=== PATIENT | male | born 1950 | race Caucasian/White ===

== ENCOUNTER 2016-09-24 07:39 | Day surgery (SDC) | payer MEDICARE, OTHER ==
[~2016-09-24 07:39] MED LIST: RINGERS SOLUTION,LACTATED 1,000 ML IV PRN; ceFAZolin SODIUM 1 GM VIAL IV PRN
--- OUTSIDE RECORDS SUMMARY | 2016-09-24 07:44 | XMS REPORT | Continuity of Care Document ---
:1950 Author Organization [facility] ([facility]) Address [place] [address] Phone [phone] Care Team Providers Name Role Phone Alejo Jennings Primary Care Provider [phone] Source Comments This disclosure is being made pursuant to the Care Everywhere program, applicable federal and state laws, and may not contain all informaitonavailable regarding this patient.[facility] ([facility]) Active Allergies and Adverse Reactions Allergen Noted Date Severity Reactions Comments Ezetimibe-Simvastatin 01/21/2012 OTHER Reports severe muscle aches. Gemfibrozil 01/21/2012 Stomach Pain Current Medications Prescription Sig. Disp. Refills Start Date End Date Status Fenofibrate 160 mg Take 160 mg by mouth Active Tab daily. simvastatin 10 mg Take 40 mg by mouth Active tablet every evening. omeprazole 20 mg Take 1 Cap by mouth 90 Cap 3 08/25/2013 Active extended release daily. Indications: capsule GASTROESOPHAGEAL REFLUX cholecalciferol Take 2 Caps by mouth 24 Cap 3 01/26/2014 Active (VITAMIN D3) 25,000 every week. unit capsule Indications: VITAMIN D DEFICIENCY testosterone (TESTIM) apply 50 mg topically 30 Tube 3 06/25/2014 Active 1 % (50 mg/5 gram) daily. Indications: topical gel MALE HYPOGONADISM Active Problems Problem Noted Date Hyperlipidemia 06/25/2014 Obesity 06/25/2014 Acid reflux 06/25/2014 Post-polio syndrome 06/25/2014 Gynecomastia 11/24/2012 Secondary male hypogonadism 11/24/2012 Elevated prostate specific antigen (PSA) 01/22/2012 Most Recent Encounters Date Type Specialty Providers Description 09/03/2016 Lab Requisition Pathology [facility] Immunizations Name Dates Previously Given Next Due Influenza, unspecified 04/16/2012,05/05/2011 Social History Tobacco Use Types Packs/Day Years Used Date Former Smoker Quit: 07/09/1991 Smokeless Tobacco: Former User Chew Quit: 03/17/1996 Tobacco Cessation:Counseling Given: Yes Comments: Alcohol Use Drinks/Week oz/Week Comments Yes 1 Glasses of wine 1.0 1 Cans of beer Last Filed Vital Signs Vital Sign Reading Time Taken Blood Pressure 138/75 06/25/2014 8:23 AM CAMPAIGN CONSULTANT Pulse 69 06/25/2014 8:23 AM CAMPAIGN CONSULTANT Temperature 35.8 C (96.4 F) 06/19/2014 8:34 AM CAMPAIGN CONSULTANT Respiratory Rate 14 11/29/2013 12:58 PM CDT Height 1.829 m (6' 0.01") 06/25/2014 8:23 AM CAMPAIGN CONSULTANT Weight 113.309 kg (249 lb 12.8 oz) 06/25/2014 8:23 AM CAMPAIGN CONSULTANT Body Mass Index 33.87 06/25/2014 8:23 AM CAMPAIGN CONSULTANT Oxygen Saturation 97% 11/29/2013 12:58 PM CDT Plan of Care Health Maintenance Due Date Last Done Comments HCV Screening 1950 Hepatitis B Vaccine (1 of 3 - Primary 1950 Series) Tdap Vaccine 02/19/1959 Lipid Disorder Screening 02/19/1966 Td Vaccine 02/19/1966 Colonoscopy 02/19/1998 Zoster Vaccine 2008 Pneumococcal Vaccine (1 of 2 - PCV13) 02/19/2013 Prostate Cancer Screening 06/19/2015 06/19/2014 Influenza Vaccine: Seasonal (#1) 02/03/2016 04/16/2012, 05/05/2011 Results from Last 3 Months SURGICAL PATHOLOGY EXAM (08/31/2016 9:00 AM) Component Value Range Case Report Surgical Pathology Case: [id number] Authorizing Provider:[facility] Collected: 08/31/2016 09:00 AM Pathologist: Sarah Bennett MDReceived: 09/03/2016 12:30 PM Specimens: A) - Outside material, 12 slides, 4 blocks labeled [id number] B) - Diagnosis Prostate, right lobe, core needle biopsies ([id number]; 08/31/16): Benign prostatic tissue with focal acute inflammation. Prostate, left lobe, core needle biopsies ([id number]): Atypical small acinar proliferation. I have personally reviewed this case and edited the report as necessary. Clinical Information 66 year old man with elevated PSA. Microscopic Description Reviewed are twelve H and E stained slides, all labeled [id number], with the corresponding preliminary pathology report. Microscopic examination performed and supports the diagnosis. Performed by:Malaika Esquivel MD, Fellow/rls Specimen Tissue
[2016-09-24] MEDS ORDERED: RINGERS SOLUTION,LACTATED 1,000 ML IV ONE ×2 (08:15→09:23)
[2016-09-24] MEDS ORDERED: ROPIVACAINE HCL IJ ONE (09:00)
[2016-09-24] MEDS ORDERED: ROPIVACAINE HCL/PF 40 MG in NORMAL SALINE 16 ML IJ PRN (09:08)
[2016-09-24] MEDS ORDERED: BUPIVACAINE HCL/EPINEPHRINE 50 ML VIAL IJ ONE ×2 (09:10)
--- NOTE | 2016-09-24 09:51 | OR ---
Operative Report - Dictated Report Narrative: Date: 09/24/2016 Physician: Salo Perry M.D. Orthopedic Assistant: Quentin Combs PA-C Preoperative diagnosis: Left Knee medial meniscus tear Postoperative diagnosis: Left Knee medial meniscus tear Procedure: Left knee arthroscopy with partial medial meniscectomy, chondroplasty of the medial femoral condyle Anesthesia: MAC Plus local Complications: None Estimated blood loss: Minimal Tourniquet time: None Specimens: None Retained implants: None Drains: None Indications: Brian Is a 66 year-old male who has been followed in my clinic with complaints of knee pain consistent with suspected medial meniscal pathology. Physical exam and diagnostic imaging were consistent with these complaints and concern for medial meniscal pathology. Conservative measures have failed including, but not limited to, passage of time, activity modification, medications, and injections. The risks, benefits, and alternatives were discussed in clinic. The risks being , bleeding, infection, blood clots, nerve, tendon, ligament , blood vessel injury, persistent pain, arthrosis, need for additional procedures, and persistent symptoms. Consent was obtained in the clinic. Procedure: After marking the correct extremity in the preoperative holding area, a timeout was performed in the operating room. IV antibiotics consisting of tear grams of Ancef were administered prior to the procedure. A well-padded tourniquet was applied to the operative upper thigh. The leg was prepped and draped in a standard sterile fashion. 0.5% Marcaine with epinephrine was infused into the projected portal sites as well as the intra-articular space. A kar incision was made for inferior lateral portal. A blunt trocar and cannula was introduced into the knee. The suprapatellar pouch revealed no loose bodies and a fairly large medial plica. The medial patella facet showed mild grade 1 chondral changes. The lateral patella facet showed grade 1 and mild grade 2 chondral changes with a small fissure approximately 1 cm in length. The trochlea showed grade 1 chondral changes with a focal area of grade 2 chondral changes approximately 1 x 1 cm in the center of the groove. The medial gutter revealed no loose bodies. The medial joint space was then entered utilizing a lateral post and valgus stress. A spinal needle was utilized for guidance into placement of an anterior medial portal. This was placed just superior to the medial meniscus ensuring that we could reach the posterior aspect of the medial joint space. A kar incision was made in the site, and the probe was introduced to the knee. The medial joint space was examined, and the medial femoral condyle showed scattered grade 1 chondral changes with a focal area of grade 2 and grade 3 chondral change at the lateral aspect of the weightbearing portion of the condyle. This small defect was probed and found to have unstable chondral flaps. The medial tibial plateau showed mild grade 1 chondral changes. The medial meniscus demonstrated a complex tear of the posterior horn with a partial-thickness radial tear at the junction of the posterior horn and body. There was a horizontal cleavage component of the posterior horn with several large unstable flaps. The notch was then examined, and the ACL was noted to be intact. The PCL was noted to be intact. The lateral joint space was then examined using a varus force in the figure 4 position. Lateral femoral condyle showed minimal degenerative change. Lateral tibial plateau showed minimal degenerative change. The lateral meniscus showed no pathology. The lateral gutter showed no loose bodies. Having identified the surgical pathology, a series of biters and alberto were utilized in order to debride the medial meniscus and chondral defect of the medial femoral condyle. Once it was felt that we adequately addressed the pathology, the knee was thoroughly irrigated. The fluid was evacuated ensuring that we have removed all meniscal, chondral, and any other loose bodies. A final evaluation of the joint showed no additional pathology. The fluid was then evacuated of the knee, and the trocar and camera were removed from the joint. The wounds were closed with interrupted nylon after placing 20 mL of 0.2% ropivacaine into the joint. Dressings consisting of Xeroform, 4 x 4, ABD, soft roll, and an Dionicio were applied. All sponge, needle, blade, and instrument counts were correct prior to closing the wounds. The patient was awoken and transferred to the post -anesthesia care unit in stable condition.
[2016-09-24] MEDS ORDERED: HYDROmorphone HCL 2 MG/ML VIAL IV PRN (10:03)
[2016-09-24] MEDS ORDERED: oxyCODONE HCL/ACETAMINOPHEN 1 TAB TABLET PO PRN (10:03)
[2016-09-24] MEDS ORDERED: RINGERS SOLUTION,LACTATED 1,000 ML IV PRN (10:04)
[2016-09-24 10:45] VITALS: BP 126/76
== END 2016-09-24 07:40 | disposition home or self-care (01) ==
LOC: AMB 07:39
PROVIDERS: ATTEND Orthopaedic Surgery
PROC: 0SBD4ZZ Excision of Left Knee Joint, Percutaneous Endoscopic Approach (ICD-10-PCS; principal; 2016-09-24 08:45)
DX: M23.222 Derangement of posterior horn of medial meniscus due to old tear or injury, left knee (principal); E78.5 Hyperlipidemia, unspecified; K21.9 Gastro-esophageal reflux disease without esophagitis; Z68.29 Body mass index [BMI] 29.0-29.9, adult